=== PATIENT | male | born 1950 | race Caucasian/White ===

== ENCOUNTER 2016-08-27 14:41 | Emergency (ER) | payer OTHER ==
[2016-08-27 15:27] LABS: Hematocrit 41.2 % (42.0-52.0); Hemoglobin 14.1 gm/dL (13.5-18.0); Mean Corpuscular Hemoglobin 30.5 pg (27-31); Mean Corpuscular Hgb Conc 34.2 g/dl (32-36); Mean Platelet Volume 9.5 fl (6.0-9.5); Neutrophil # 5.7 K/mm3 (1.3-6.0); Neutrophil % 53.8 % (42-75.0); Platelet Count 273 K/mm3 (150-450); Red Blood Count 4.63 M/mm3 (4.7-6.0); Red Cell Distribution Width 12.9 % (11.5-14.0); White Blood Count 10.6 K/mm3 (4.0-10.5)
[2016-08-27 15:41] LABS: Albumin * 4.1 gm/dl (3.4-5.0); Anion Gap 16.2 mmol/L (6.8-13.8); BUN/Creatinine Ratio 13.1 (9.0-21.6); Bilirubin, Total 1.3 mg/dL (0.0-1.1); Ca. Corrected For Albumin 9.9 mg/dL (8.4-10.2); Calcium * 10.3 mg/dL (7.9-10.9); Potassium 4.2 mmol/L (3.4-4.6); Total Protein 8.1 gm/dL (6.2-8.2)
[2016-08-27] MEDS ORDERED: KETOROLAC TROMETHAMINE 30 MG/ML VIAL IV ONE (15:41)
[2016-08-27] MEDS ORDERED: METOCLOPRAMIDE HCL 5 MG/ML VIAL IV ONE (15:41)
[2016-08-27] MEDS ORDERED: NORMAL SALINE 1,000 ML IV ONE (15:41)
[2016-08-27] MEDS ORDERED: METOCLOPRAMIDE HCL 5 MG/ML VIAL ONE (15:55)
[2016-08-27] MEDS ORDERED: KETOROLAC TROMETHAMINE 30 MG/ML VIAL ONE (15:55)
[2016-08-27 16:25] LABS: Urine Bilirubin Negative (NEGATIVE); Urine Blood Negative /ul (NEGATIVE); Urine Ketone Negative (NEGATIVE); Urine Nitrite Negative (NEGATIVE); Urine Protein Negative (NEGATIVE); Urine Specific Gravity 1.025 SP.GR. (1.005-1.030); Urine Urobilinogen Normal (NORMAL)
[2016-08-27 16:37] LABS: Urine Appearance Clear; Urine Bacteria None Seen; Urine Color Yellow; Urine RBC None Seen /hpf (0-5); Urine WBC None Seen /hpf (0-5)
--- NOTE | 2016-08-27 16:53 | ERNOTE ---
Abdominal HPI - Narrative Date of Service: 08/27/16 - General Chief Complaint: Abdominal Pain Time Seen by Provider: 08/27/16 15:30 Source: patient, family, RN notes reviewed Exam Limitations: no limitations - Immun/Allergies/Home Medications Immunizatons: IMMUNIZATION HX Immunizations Up to Date Yes History of Influenza Vaccine Yes Hx Pneumococcal Vaccination Yes Allergies/Adverse Reactions: Allergies No Known Allergies Allergy (Unverified 08/27/16 15:04) Home Medications: HOME MEDICATIONS Atenolol [Tenormin] 80 mg PO DAILY 08/27/16 [Last Taken Unknown] Lisinopril 5 mg PO DAILY 08/27/16 [Last Taken Unknown] Lovastatin 40 mg PO DAILY 08/27/16 [Last Taken Unknown] PARoxetine HCL [Paxil] 30 mg PO DAILY 08/27/16 [Last Taken Unknown] glipiZIDE [Glipizide] 10 mg PO DAILY 08/27/16 [Last Taken Unknown] metFORMIN HCL [Fortamet] 500 mg PO DAILY 08/27/16 [Last Taken Unknown] - Pain Score Pain Score #1 Pain Score: 5 Abdominal Pain Onset Location: RUQ, epigastric Pain Radiation: flank - History of Present Illness Narrative: 65 y/o male ambulatory to the ED with his for pain in his upper abdomen that began 2 days ago. It is constant, but becomes worse with oral intake. The pain is getting worse today. Date (Duration): 08/25/16 Timing: constant, getting worse Quality: moderate, aching, dullness Activities at Onset: none Modifying Factors - (Improves): Absent: defecating, eating, rest, lying down, sitting up Modifying Factors - (Worsens): Present: eating. Absent: breathing, coughing, defecating, rest, lying down, sitting up, movement, exercise Associated Symptoms: Present: fatigue, nausea, loss of appetite. Absent: headache, chest pain, diaphoresis, fever/chills, heartburn, vomiting Prior Abdominal Problems: Present: none Prior Treatment: Absent: recently seen Review of Systems - Review of Systems Constitutional: Present: fatigue, malaise. Absent: recent illness, fever, chills EYE: Present: no symptoms reported ENT: Absent: nose congestion, sore throat Respiratory: Absent: shortness of breath, cough Cardiology: Absent: chest pain, palpitations Gastrointestinal/Abdominal: Present: nausea, abdominal pain, eating less, drinking less. Absent: vomiting, diarrhea, constipation Genitourinary: Absent: frequency, dysuria, hematuria Musculoskeletal: Absent: back pain, neck pain Skin: Absent: rash, lesions, lumps Neurological: Absent: headache, dizziness/light-headedness Endocrine: Present: no symptoms reported Hematologic/Lymphatic: Present: no symptoms reported Psych: Present: no symptoms reported - Patient's Past Medical History Patient History - Medical: Diabetes Type 2 Patient History - Cardiac/Respiratory: Hypertension Patient History - Cancer: No Hx of Cancer Patient History - Surgical Procedures: Back Surgery, Hernia Repair, Orthopedic Patient History - Other: None - Social History Living Situations: home Abuse History: No History of abuse Psych History: Current tx/ever been on anti-depressants or anti-anxiety meds Smoking Status: Never smoker Do you dip or chew tobacco: No Alcohol Use: none Drug Use: none - Immunizations Immunizations Up to Date: Yes Hx Pneumococcal Vaccination: Yes History of Influenza Vaccine: Yes Physical Exam - Physical Exam General Appearance: Present: wd/wn, alert, other - appears somewhat uncomfortable Eye Exam: Normal inspection: bilateral Ears, Nose, Throat: Present: normal ENT inspection Neck: Present: normal inspection, nontender, supple Respiratory: Present: no respiratory distress, normal breath sounds, no accessory muscle use, chest nontender, lungs clear Cardiovascular/Chest: Present: regular rate, rhythm, no murmur, normal peripheral pulses Gastrointestinal/Abdominal: Present: soft, no organomegaly, tenderness - RUQ, epigastric - moderate, abnormal bowel sounds - sluggish, distended. Absent: mass, hernia Back Exam: Present: normal range of motion, no vertebral tenderness, CVA tenderness (R). Absent: CVA tenderness (L) Extremity Exam: Present: normal inspection, normal range of motion, no edema Neurological Exam: Present: alert, oriented, normal mood/affect, no motor/ sensory deficits Skin Exam: Present: normal color, warm/dry ED Progress - Results and Orders Patient's Lab Results:: I have reviewed the patient's lab results. - Vital Signs Patient's Vital Signs:: I have reviewed the patient's vital signs. Vital Signs: Vital Signs 08/27/16 08/27/16 14:52 16:16 Temperature 36.4 C L 36.6 C Pulse Rate 72 70 Respiratory 16 14 Rate Blood Pressure 147/86 131/88 O2 Sat by Pulse 97 96 Oximetry - X-Ray X-Ray #1 X-Ray: abdomen Interpretation: Reviewed by me X-ray Comments: Technique: Supine and upright views the abdomen utilizing 5 total images. Findings: Moderate fecal retention seen throughout the colon. Scattered air throughout the colon. No dilation of the colon. No air-filled or dilated loops of small bowel to suggest obstruction. No free air or free fluid. Degenerative change of the spine and hips. IMPRESSION: MODERATE FECAL RETENTION WITHOUT EVIDENCE FOR OBSTRUCTION. Electronically signed by Antwan Vicente D.O.. - Progress/Reassessment Chief Complaint: Abdominal Pain Progress:: Improved Progress Note-Subjective: 08/27/16 16:48 Some improvement in pain and relief of nausea after Toradol and Zofran. Discussed lab and xray results. WBC only slightly elevated. Stool retention present on xray. Will give Milk of Mag prior to D/C. Departure - Departure Clinical Impression: Right upper quadrant abdominal pain Constipation Qualifiers: Constipation type: unspecified constipation type Qualified Code(s): K59.00 - Constipation, unspecified Disposition: Home Follow Up Needed Condition: Stable Instructions: Abdominal Pain, Adult, [id number] Additional Instructions: Can try Magnesium Citrate tomorrow if the Milk of Magnesia is not effective Return for persistent or worsening symptoms Referrals: Nevaeh Ashley DO [Primary Care Provider] -
[2016-08-27] MEDS ORDERED: MAGNESIUM HYDROXIDE 30 ML UDC PO ONE (17:09)
[2016-08-27 17:22] VITALS: BP 130/84
== END 2016-08-27 17:20 | disposition home or self-care (01) ==
LOC: ER 14:41
DX: K59.00 Constipation, unspecified (principal); R10.11 Right upper quadrant pain; E11.9 Type 2 diabetes mellitus without complications; I10 Essential (primary) hypertension; F41.9 Anxiety disorder, unspecified; F32.9 Major depressive disorder, single episode, unspecified